=== PATIENT | female | born 1990 | race Two or more races ===

== ENCOUNTER → 2019-02-15 | Outpatient (CLI) | payer OTHER | END | disposition home or self-care (01) | LOC: PRENATAL 09:50 | DX: O28.3 Abnormal ultrasonic finding on antenatal screening of mother (principal) ==

== ENCOUNTER 2019-04-20 11:01 | Outpatient (CLI) | payer OTHER | END 2019-04-20 12:00 | disposition home or self-care (01) | LOC: PRENATAL 11:01 | DX: O26.843 Uterine size-date discrepancy, third trimester (principal); O28.3 Abnormal ultrasonic finding on antenatal screening of mother ==

== ENCOUNTER → 2019-06-07 | Outpatient (CLI) | payer OTHER | END | disposition home or self-care (01) | LOC: PRENATAL 06-05 10:00 | DX: O26.843 Uterine size-date discrepancy, third trimester (principal) ==